=== PATIENT | female | born 1970 | race Two or more races ===

== ENCOUNTER 2024-12-01 08:34 | Emergency (ER) | payer OTHER ==
[~2024-12-01] VITALS: Ht 149.9 cm; Wt 58.1 kg
[2024-12-01] MEDS ORDERED: TOPROL XL25 M1 (08:41)
[2024-12-01] MEDS ORDERED: ADULT LOW DOSE81 M1 (08:41)
[2024-12-01] MEDS ORDERED: CRESTOR40 MG (08:42)
[2024-12-01] MEDS ORDERED: GUAIFENESIN 200 MG/10 ML BLIST.PACK PO ONE ×2 (09:45→09:48)
[2024-12-01 11:00] LABS: HEMATOCRIT 42.5 % (36.0-45.00); HEMOGLOBIN 14.4 g/dL (12.0-15.00); MEAN CELL VOLUME 95.1 fL (80.00-100.00); MEAN CORPUSCULAR HEMOGLOBIN 32.3 pg (27.00-32.0); PLATELET COUNT 249 K/uL (150-450); RED BLOOD COUNT 4.47 M/uL (4.00-6.00); RED CELL DISTRIBUTION WIDTH 13.7 % (11.5-14.5)
== END 2024-12-01 12:11 | disposition home or self-care (01) ==
LOC: ER 08:36
PROVIDERS: General Practice
DX: B34.9 Viral infection, unspecified (principal); I10 Essential (primary) hypertension; Z20.822 Contact with and (suspected) exposure to COVID-19